=== PATIENT | male | born 1960 | race Caucasian/White ===

== ENCOUNTER → 2017-02-03 | Outpatient (CLI) | payer OTHER ==
[~2017-02-03] VITALS: Ht 175.3 cm; Wt 84.3 kg
[~2017-02-03] MED LIST: AMITRIPTYLINE H50 M2 PO; ASPIRIN EC81 M1 PO; BACLOFEN 10MG T10 MG PO; FISH OIL 1,2001 EAC5 PO; HYDROCHLOROTHIA25 M1 PO; HYDROCODON-ACE1 EAC5 PO; HYDROCODON-ACE1 EAC7; IBUPROFEN 200200 M1 PO; KETOCONAZOLE60 GM TP; LYRICA 75 MG CA75 MG PO; NEURONTIN600 MG PO; NIASPAN 500 MG500 M1 PO; NORCO 10-325 T1 EACH PO; NORVASC10 MG PO; PERCOCET 10-321 EACH PO; PRAVACHOL40 MG PO; VITAMIN D31000 UNI2 PO
--- NOTE | ~2017-02-03 | HPC ---
[facility] [place] [address] PAIN MANAGEMENT CONSULTATION Name: DANG AVILA Viktoria Room #: REG [facility]#: [id number] Admission: 02/03/17 Attend Phys: Simon Dee DO Discharge: Date of : 56 Report #: [id number] THIS REPORT FOR: //name// CC: Simon Murguia DATE OF SERVICE: 02/03/2017 REFERRING PHYSICIAN: Jose Hoffmann MD CHIEF COMPLAINT: Bilateral elbow pain. HISTORY OF PRESENT ILLNESS: As you know, the patient is a 56-year-old male who returns today in followup visit reporting bilateral elbow pain for which he places pain score 7/10, states his pain is exacerbated with golf activities for which he was just involved in a long weekend of golfing. This has caused right medial elbow pain and left lateral elbow pain. He returns today requesting injections into the elbows themselves to assist in his epicondylitis. The patient indicates pain is exacerbated with activities, improves with rest, relaxation and decreasing his golf activities. ALLERGIES: No known drug allergies. CURRENT MEDICATIONS: [place]-3 fish oil, hydrocodone, cholecalciferol, amlodipine, pravastatin, amitriptyline, aspirin, and hydrochlorothiazide. SOCIAL HISTORY: The patient denies tobacco, alcohol, IV or illicit drug use. He is retired. He is unaccompanied today. PHYSICAL EXAMINATION: VITAL SIGNS: Blood pressure 140/93, pulse 83, respiratory rate 16 and unlabored, the patient is 97% on room air, height 5 feet 9 inches tall, weight 185.8 pounds, and BMI calculated 27.4. GENERAL: Well-developed, well-nourished, well-hydrated 56-year-old male, appears his stated age, he is in no acute distress, awake, alert and oriented x3, pain is rated at 7/10. HEENT: Normocephalic, atraumatic. Pupils are equal, round, and reactive to light. EXTREMITIES: Show no clubbing, no cyanosis, and no edema. MUSCULOSKELETAL: The patient has palpatory tenderness to the medial aspect of the right elbow, this overlies the tendinous structures in the area. There is also tenderness to palpation over the lateral left elbow directly over the tendinous areas as well. There is no erythema and no edema in the area. Pain is elicited with active and passive range of motion as well as pronation and supination of both right and left upper extremity. [address] [address] PAIN MANAGEMENT CONSULTATION Name: DANG AVILA Viktoria Room #: REG [facility]#: [id number] Admission: 02/03/17 Attend Phys: Simon Dee DO Discharge: Date of : 56 Report #: [id number] ASSESSMENT: Bilateral elbow tendinitis. PLAN: 1. The patient has returned to our clinic to discuss bilateral elbow tendinitis, left lateral elbow and right medial elbow. The patient has undergone injections in the area with good efficacy. He recently had an injection done by orthopedic surgery on the medial portion of the right elbow, which resolved the symptoms for nearly a year. He has requested that we provide these injections today. He has been advised of the risks and the benefits of bilateral elbow injection. These risks include, but are not necessarily limited to bleeding, bruising, infection, worsening of pain, no relief of pain, also risk of temporary or permanent muscle weakness, temporary or permanent nerve damage, possible joint destruction and . The patient states understood and wished to proceed. 2. No medication changes were made at today's visit. The patient to continue current medical therapy as previously prescribed. We did give him samples of Pennsaid to utilize today. If he finds it is helpful, he can contact our clinic, he is to apply this up to 3 times a day to his elbows as necessary, he is not to utilize this medication for the next 48 hours as we have just recently provided this injection requested today. If he finds the Pennsaid helpful in pain control, he can contact our clinic and we will attempt to gain authorization. 3. The patient to return to our clinic on an as needed basis. PROCEDURE NOTE DESCRIPTION OF PROCEDURE: Right medial olecranon injection and left lateral olecranon injection to address medial and lateral epicondylitis. The patient was taken into our surgical suite. The area of the right medial elbow was prepped and draped with chlorhexidine. A 27-gauge 1-1/4-inch needle was used to anesthetize the skin and subcutaneous tissue with 1 mL of lidocaine 1%. A 27-gauge 1-1/4-inch needle was then used to advance towards the ligamentous structures of the medial portion of the elbow. After advancing the needle, aspiration noted to be negative for heme. 1 mL of a solution containing 1 mL 40 mg per mL, 40 mg total triamcinolone, 1 mL bupivacaine 0.5% was injected in a fanned-out distribution. Needle was retracted half way, flushed with a 0.5 mL of lidocaine 1% and removed. Sterile bandage was placed over this injection site. Our attention was then directed to the lateral aspect of the left elbow. The area was then prepped and draped in aseptic fashion with chlorhexidine. A 27-gauge 1-1/4-inch needle was used to anesthetize skin and subcutaneous tissue with 1 mL of 1% lidocaine. A 27-gauge 1-1/4 inch needle was then used to advance into the elbow ligamentous structures. Needle was advanced and [facility] [address] [place] [address] PAIN MANAGEMENT CONSULTATION Name: MARGARITADANG Room #: REG [facility] Shayla#: [id number] Admission: 02/03/17 Attend Phys: Simon Dee DO Discharge: Date of : 56 Report #: [id number] aspiration was then noted to be negative for heme. Next, 1 mL of a solution containing 1 mL 40 mg per mL, 40 mg total triamcinolone and 1 mL bupivacaine 0.5% was injected slowly in a fanned-out distribution. Needle was retracted long term, flushed with 1 mL of 1% lidocaine and removed. Sterile bandage placed over injection site. The patient tolerated the procedure well, carefully escorted to the recovery room in stable condition. VAS before procedure rated at 7/10, VAS after the procedure rated at no more than 2/10. After meeting our discharge criteria, the patient discharged home. By: [id number] Simon Dee DO /nt
[2017-02-03 10:22] VITALS: BP 140/93
== END ==
LOC: PAIN 07:02
DX: M77.12 Lateral epicondylitis, left elbow (principal); M77.01 Medial epicondylitis, right elbow; I10 Essential (primary) hypertension; Z87.891 Personal history of nicotine dependence

== ENCOUNTER → 2018-04-20 | Outpatient (CLI) | payer OTHER ==
[~2018-04-20] VITALS: Ht 172.7 cm; Wt 88.5 kg
[~2018-04-20] MED LIST changes: +LOSARTAN POTAS100 MG PO
--- NOTE | ~2018-04-20 | HPC ---
[facility] [place] [address] PAIN MANAGEMENT CONSULTATION Name: MARGARITADANG D [facility] [id number] Admission: 04/20/18 Attend Phys: Simon Dee DO Discharge: Date of : 56 Report #: [id number] THIS REPORT FOR: //name// CC: Simon Murguia DATE OF SERVICE: 04/20/2018 CHIEF COMPLAINT: Low back pain, right lower extremity pain with paresthesias. HISTORY OF PRESENT ILLNESS: As you know, the patient is a 58-year-old male, returning today in followup visit with numbness, tingling, burning sensation radiating from the low back down the right leg. He places pain score at approximately 8-9/10. He states pain is exacerbated with all activities, improves with nothing to date. The patient states he was in his normal state of health, undergoing physical therapy when his pain intensified. He was advised symptoms may be related to piriformis syndrome, but his symptoms do not remain in the buttock area. It radiates all the way down the leg in typical radiating fashion of a radiculopathy. He returns today in followup visit to discuss treatment options. He denies injury or trauma or changes in medical history since our last visit. ALLERGIES: No known drug allergies. CURRENT MEDICATIONS: [place]-3 fish oil, hydrocodone, cholecalciferol, amlodipine, pravastatin, amitriptyline, aspirin and hydrochlorothiazide. SOCIAL HISTORY: The patient denies tobacco, alcohol, IV or illicit drug use. He is retired, accompanied by his who is present in room today. PQRS: The patient has known osteoarthritis of the bilateral knees and bilateral elbows. He also has mild arthritic changes in the shoulders. He does not have a diagnosis of rheumatoid arthritis. He is not a fall risk, has not had a fall in the last 3 months. He is not on blood thinners. He is treated for hypertension. He has not been on opioids for longer than 6 weeks. He has a low assessment for opioid abuse. His functional assessment tool 38/70, moderate interference. PHYSICAL EXAMINATION: VITAL SIGNS: Blood pressure 130/103, pulse is 96, respiratory rate 14 and unlabored. The patient is 98% on room air. Height 5 feet 8 inches tall, weight 195 pounds, BMI calculated 29.7. GENERAL: Well-developed, well-nourished, well-hydrated 58-year-old male appearing stated age, placing current pain score at 8-9/10. HEENT: Normocephalic, atraumatic. Pupils equal, round, reactive to light. [facility] [address] [place] [address] PAIN MANAGEMENT CONSULTATION Name: DANG AVILA Room #: REG [facility]#: [id number] Admission: 04/20/18 Attend Phys: Simon Dee DO Discharge: Date of : 56 Report #: [id number] Extraocular muscles are intact. Sclerae nonicteric without injection. NEUROLOGIC: Cranial nerves 2-12 grossly intact. Speech fluent. The patient deemed a fair historian. EXTREMITIES: Show no clubbing, no cyanosis, no edema. MUSCULOSKELETAL: Seated straight leg raising negative. Supine straight leg raising positive on the right. JOSIAH test negative. Modified Gaenslen's positive for axial low back pain. Ankle clonus negative. Babinski is negative. ASSESSMENT: 1. Symptomatic lumbar radiculopathy. 2. Lumbosacral spondylosis with radiculopathy. 3. Post-laminectomy syndrome. 4. Chronic intractable pain. PLAN: 1. The patient returns today in followup visit with what appears to be a recurrence of his lumbar radicular symptoms radiating from the low back through the buttock area and down the leg. He is describing pain as burning, numbness and tingling consistent with a lumbar radiculopathy. I am unable to elicit any piriformis syndrome findings that would be concerning for this etiology. The hip joint appears to be normal and stable without pain generation with active and passive range of motion. Given the findings on physical exam, the descriptors the patient uses as well as the distribution of symptoms, I believe his symptoms are related to recurrent lumbar radiculopathy. At this point, we do not have any new imaging to confirm whether or not things have changed but it does appear his symptoms have returned. We have discussed options for treatment. He chose to undergo epidural injection. 2. The patient was advised risks and benefits of a lumbar epidural injection. These risks include but are not necessarily limited to bleeding, bruising, infection, worsening pain, no relief of pain, also risk of temporary or permanent muscle weakness, temporary or permanent nerve damage, possible paralysis and . The patient states he understood and wished to proceed. 3. No medication changes made at today's visit. The patient to continue current medical therapy as previously prescribed. 4. The patient will return to our clinic on an as-needed basis for next in the series of epidural injections. PROCEDURE NOTE DESCRIPTION OF PROCEDURE: L5-S1 right paramedian epidural steroid injection under fluoroscopic guidance. After obtaining written consent, the patient was taken back to fluoroscopy suite, placed in prone position with pillow under abdomen to decrease lumbar lordosis. Skin overlying lumbosacral area then prepped and draped in aseptic fashion. Lumbar intervertebral space was identified by AP fluoroscopy. Skin [facility] [address] [place] [address] PAIN MANAGEMENT CONSULTATION Name: DANG AVILA [id number] Admission: 04/20/18 Attend Phys: Simon Dee DO Discharge: Date of : 56 Report #: [id number] and subcutaneous tissue overlying target site of injection was anesthetized with 3 mL of 1% lidocaine. A 20-gauge 3-1/2 inch Tuohy needle advanced under fluoroscopic guidance towards the epidural space using right paramedian approach. Epidural space identified using loss of resistance to air technique. After negative aspiration for heme or cerebrospinal fluid, 1 mL of Omnipaque injected. Lumbar epidurogram confirmed using both AP and lateral fluoroscopy. After negative aspiration for heme or cerebrospinal fluid, 5 mL of solution containing 2 mL 40 mg per mL, 80 mg total triamcinolone, 3 mL lidocaine 1% injected slowly. Needle retracted care home, flushed with 1 mL of 1% lidocaine and removed. Sterile bandages were placed over injection site. The patient tolerated procedure well, carefully escorted to recovery room in stable condition. No apparent complications. After meeting discharge criteria, the patient discharged home. <ELECTRONICALLY SIGNED> By: Simon Dee DO 04/28/18 0801 [id number] Simon Dee DO /nt
[2018-04-20 12:58] VITALS: BP 130/103
== END | disposition home or self-care (01) ==
LOC: PAIN 06:40
DX: M47.27 Other spondylosis with radiculopathy, lumbosacral region (principal); G89.29 Other chronic pain; M96.1 Postlaminectomy syndrome, not elsewhere classified; I10 Essential (primary) hypertension; M06.9 Rheumatoid arthritis, unspecified; M19.90 Unspecified osteoarthritis, unspecified site; Z79.899 Other long term (current) drug therapy; Z79.891 Long term (current) use of opiate analgesic; Z79.82 Long term (current) use of aspirin; Z87.891 Personal history of nicotine dependence

== ENCOUNTER → 2018-05-05 | Outpatient (CLI) | payer OTHER ==
[~2018-05-05] VITALS: Ht 172.7 cm; Wt 87.6 kg
--- NOTE | ~2018-05-05 | HPC ---
[facility] [place] [address] PAIN MANAGEMENT CONSULTATION Name: MARGARITADANG Room #: REG [facility] [id number] Admission: 05/05/18 Attend Phys: Simon Dee DO Discharge: Date of : 56 Report #: [id number] THIS REPORT FOR: //name// CC: Simon Murguia DATE OF SERVICE: 05/05/2018 REFERRING PHYSICIAN: Jose Hoffmann M.D. CHIEF COMPLAINT: Low back pain, right lower extremity pain with paresthesias. HISTORY OF PRESENT ILLNESS: As you know, the patient is a 58-year-old male, returning in followup visit with continued numbness, tingling and pain radiating down the right leg. He is placing pain score 6-7/10. He indicates pain level is constant, nothing tends to improve it. He underwent epidural injection at our last visit to address suspected lumbar radiculopathy. Unfortunately, he received no improvement in symptoms. He returns to discuss other options for treatment. He has had no change in medical history since our last visit. He has made no changes in his medication management. ALLERGIES: No known drug allergies. CURRENT MEDICATIONS: [place]-3 fish oil, hydrocodone, cholecalciferol, amlodipine, pravastatin, amitriptyline, aspirin and hydrochlorothiazide. SOCIAL HISTORY: The patient denies tobacco, alcohol, IV or illicit drug use. He is retired. He is accompanied by his who is present in room today. IMAGING: No new imaging available. PQRS: The patient has osteoarthritis of the bilateral knees, bilateral elbows. He has mild arthritic changes in the shoulders. He does not have a diagnosis of rheumatoid arthritis. He is not a fall risk, has not had a fall in the last 3 months. He is not on blood thinners. He is treated for hypertension. He has been on opioids for greater than 6 weeks and under contract to receive these. He has a low opioid abuse potential. His functional assessment today indicates 48/70, severe interference. PHYSICAL EXAMINATION: VITAL SIGNS: Blood pressure 132/92, pulse is 81, respiratory rate 16, unlabored. The patient is 97% on room air. Height 5 feet 8 inches tall, weight 193.2 pounds, BMI calculated 29.4. GENERAL: Well-developed, well-nourished, well-hydrated 58-year-old male appearing his stated age, placing current pain score 6-7/10[place] [address] PAIN MANAGEMENT CONSULTATION Name: DANG AVILA Room #: REG [facility]#: [id number] Admission: 05/05/18 Attend Phys: Simon Dee DO Discharge: Date of : 56 Report #: [id number] HEENT: Normocephalic, atraumatic. Pupils equal, round, reactive to light. Extraocular muscles are intact. Sclerae are nonicteric without injection. EXTREMITIES: Show no clubbing, no cyanosis, no edema. MUSCULOSKELETAL: Lower extremity strength is symmetrical 5/5. Giveaway strength noted with hip flexion, knee extension on the right when compared to left due to pain generation. Seated straight leg raising mildly positive right. Supine straight leg raising positive right. Karina's test negative. Modified Gaenslen's positive for axial low back pain. Gait mildly antalgic, favoring right lower extremity. ASSESSMENT: 1. Symptomatic lumbar radiculopathy. 2. Lumbosacral spondylosis with radiculopathy. 3. Post-laminectomy syndrome. 4. Failed lumbar spine surgery. 5. Chronic intractable pain. PLAN: 1. The patient has returned today in followup visit unfortunately noticing not much in the way of improvement with the epidural injection provided at last visit. We have reviewed with the patient the procedure itself, also reviewed the imaging from the fluoroscope. It does appear the needle was in the appropriate position and the dye spread was significant enough to cover the suspected nerve root issues. Unfortunately with the lack of efficacy, I would not recommend continuing these epidural injections. We established today's appointment to discuss other treatment options. 2. The patient and I discussed the options for treatment now remain physical therapy, stretching exercises, core strengthening, medication management, adding a low dose opioid for pain control in conjunction with starting the patient on a long acting form of gabapentin, as he is unable to tolerate ____ gabapentin causing daytime somnolence and disorientation and confusion. We also discussed spinal cord stimulator therapy and surgical options. After reviewing risks and benefits of all proposed treatment options, the patient chose conservative medical management and physical therapy. 3. The patient will be sent for physical therapy twice a week, 4 weeks. Prescription was provided to the patient to begin as quickly as possible. He was also given information in written form today about stretching exercises he can do at home before formalized training begins. 4. The patient will be provided a prescription of hydrocodone, dosing is 10/325 one tab p.o. q. 6 hours p.r.n. for pain. I have given the patient #120, no refills. The patient was advised to watch for side effects of somnolence, decreased mental acuity, disorientation, confusion and constipation with use of therapy. He is to utilize the medication only when pain is intolerable, not to rely on the medication prophylactically. 4. The patient will begin taking Gralise, the 24-hour dose of gabapentin, as indicated above the patient had difficulty with both gabapentin and Lyrica [facility] [address] [place] [address] PAIN MANAGEMENT CONSULTATION Name: MARGARITADANG Room #: REG [facility].#: [id number] Admission: 05/05/18 Attend Phys: Simon Dee DO Discharge: Date of : 56 Report #: [id number] during the daytime hours causing somnolence, decreased mental acuity, disorientation and severe confusion. We had to discontinue the medication. We are unable to escalate the dose to an efficacious level. We will start the patient on Gralise at night 2 hours before bedtime. The pharmacokinetics and dynamics of this drug are such that the patient should not see long-term somnolence and decreased mental acuity based on the available literature and our experience with the drug. He will begin 2 hours before bedtime and continue the titration as directed. He will contact our clinic once he reaches an efficacious level or has issues or concerns with the medication. He was given samples to be able to titrate for 15 days, he will contact our clinic once he reaches a good level of pain improvement. 5. We will see the patient back in followup visit in 1 month for medication management and adjustments in therapy if necessary. By: [id number] Simon Dee DO /nt
[2018-05-05 09:53] VITALS: BP 132/92
== END ==
LOC: PAIN 05:56
DX: M47.27 Other spondylosis with radiculopathy, lumbosacral region (principal); G89.4 Chronic pain syndrome

== ENCOUNTER → 2018-06-02 | Outpatient (CLI) | payer OTHER ==
[~2018-06-02] VITALS: Ht 172.7 cm; Wt 86.7 kg
[~2018-06-02] MED LIST changes: +GRALISE300 MG PO
--- NOTE | ~2018-06-02 | HPC ---
[facility] [place] [address] PAIN MANAGEMENT CONSULTATION Name: DANG AVILA Room #: [facility] [id number] Admission: 06/02/18 Attend Phys: Simon Dee DO Discharge: Date of : 56 Report #: [id number] THIS REPORT FOR: //name// CC: MASSIMO Murguia DATE OF SERVICE: 06/02/2018 CHIEF COMPLAINT: Low back pain, right lower extremity pain and paresthesias. HISTORY OF PRESENT ILLNESS: As you know, the patient is a very pleasant 58-year-old male who returns today in followup visit having good resolution of symptoms with the combination of previous epidural injections and the use of Gralise. He is taking 300-600 mg depending on his pain level of the Gralise on a daily basis with good efficacy. He is now placing pain score 1/10. He returns today in followup visit requesting refills of his hydrocodone he uses on an as needed basis, but also a refill of his Gralise at 300 mg. He denies side effects to medication, feels they are working beneficially and has a pain level today of 1/10. ALLERGIES: No known drug allergies. CURRENT MEDICATIONS: [place]-3 fish oil, hydrocodone, cholecalciferol, amlodipine, pravastatin, amitriptyline, aspirin, hydrochlorothiazide, and Gralise. IMAGING: No new imaging available. PQRS: The patient has known osteoarthritis of the bilateral knees, bilateral elbows, mild arthritic changes in the shoulders. He has no diagnosis of rheumatoid arthritis. He is not a fall risk, has not had a fall in the last 3 months. He is not on blood thinners. He is treated for hypertension. He has been on opioids for greater than 6 weeks. He has a low opioid abuse potential. Functional assessment tool indicates pain impact of 4870. K-TRACS and MO-TRACS were completed, no concerning entries in these opioid tracking programs. PHYSICAL EXAMINATION: VITAL SIGNS: Blood pressure 132/90, pulse 84, respiratory rate 16 and unlabored. The patient is 97% on room air. Height 5 feet 8 inches tall, weight 191.2 pounds, BMI calculated 29.1. GENERAL: Well-developed, well-nourished, well-hydrated 58-year-old male appearing stated age, placing current pain score 1/10. HEENT: Normocephalic, atraumatic. Pupils equal, round, reactive to light. [facility] [address] [place] [address] PAIN MANAGEMENT CONSULTATION Name: DANG AVILA Viktoria Room #: REG [facility]#: [id number] Admission: 06/02/18 Attend Phys: Simon Dee DO Discharge: Date of : 56 Report #: [id number] EXTREMITIES: Show no clubbing, no cyanosis, no edema. MUSCULOSKELETAL: Seated straight leg raising negative. Supine straight leg raising remains positive on the right. Karina's test negative. Modified Gaenslen's positive for axial back pain. Ankle clonus negative. Babinski is negative. ASSESSMENT: 1. Symptomatic lumbar radiculopathy. 2. Lumbosacral spondylosis with radiculopathy. 3. Mild displacement of lumbar intervertebral disk with radiculopathy. 4. Post-laminectomy syndrome. 5. Failed lumbar spine surgery. 6. Chronic intractable pain. PLAN: 1. The patient returns today in followup visit indicating good efficacy with combination of epidural injections, hydrocodone and the recent addition of Gralise. He is taking 300 mg at night and notes pain score 1/10. He wishes to continue medication as currently prescribed. He feels the gabapentin is working well in the Gralise formulation which equates to 300 mg 3 times a day. The patient was provided prescription of Gralise 300 mg dose 1 tab p.o. at bedtime. I have given the patient #30 tablets, 2 refills, 3 months' worth of medication. 2. The patient was given sample pack of Gralise today. He will continue the 300 mg tablets for the next couple of weeks, confirm that his symptoms remain improved at the 300 mg dose. If not, we could escalate to the 600 mg dose. I have advised the patient not to fill the prescription above until he has completed the sample 300 mg tablets. If he continues at 300 mg without complication, we will be more than willing to provide him refills at followup visits. We reviewed the fact that opiate medications are being used to provide analgesia adequate to support activities of daily living, not attempting to achieve a specific pain score on the 0-10 Visual Analog Scale. The current opiate medications are providing sufficient analgesia to allow the patient to participate in activities of daily living. The patient is not exhibiting any aberrant behavior suggestive of drug diversion. The patient is not having any adverse reactions to medications. The patient is not suffering from daytime somnolence or mental acuity changes. The patient is managing opiate-induced constipation with appropriate kqfj-pik-kookvfs agents and dietary considerations. The patient was counseled on concern for caution with operating a motor vehicle while using opiate medications. A physical exam was performed and the patient's functional status was evaluated. All patients with back pain were advised against the bed rest greater than 4 days and were advised to return to normal activities. Pain score assessment was noted and the treatment plan was reviewed with the patient. All current [facility] [place] [address] PAIN MANAGEMENT CONSULTATION Name: DANG AVILA Room #: [facility] [id number] Admission: 06/02/18 Attend Phys: Simon Dee DO Discharge: Date of : 56 Report #: [id number] medications, both prescribed and OTC were reviewed and reconciled on the electronic medical record. Tobacco screening was accomplished and smoking cessation was advised when indicated. BMI was noted and diet/exercise modification was recommended for all patients following outside normal parameters. I reviewed with the patient today their responsibilities to safeguard prescription medications, reviewed their responsibility to utilize medications only as prescribed by the physician. They are to seek and receive pain medications only from 1 physician group ( [facility]). They are to use 1 pharmacy and keep the clinic informed if they change pharmacies. Their responsibilities include making followup visits in a timely fashion and to avoid abrupt discontinuation of medication usage. Their responsibilities further include bringing their medications (bottles from the pharmacy with residual pills) to the visit for possible confirmation of pill counts and the patient understands it is their responsibility to submit to random drug screens to ensure both that the medications prescribed are present, and that no other controlled substances are present. All prescriptions provided today were generated electronically. 3. The patient was provided prescription of hydrocodone 10/325 one tab every 8 hours p.r.n. for pain, I have given the patient #90, releases of today and 4 weeks from today, 2 months' worth of medication. The patient was advised to take the medication as directed, not to take the medication prophylactically. 4. We will see the patient back in followup visit on an as needed basis for possible repeat epidural injection. Otherwise, we will see him back in 2 months for opioid medications. By: [id number] Simon Dee DO /nt
[2018-06-02 08:54] VITALS: BP 132/90
== END ==
LOC: PAIN 06:55
DX: M47.27 Other spondylosis with radiculopathy, lumbosacral region (principal); M51.16 Intervertebral disc disorders with radiculopathy, lumbar region; G89.4 Chronic pain syndrome; Z79.899 Other long term (current) drug therapy

== ENCOUNTER → 2018-11-24 | Outpatient (CLI) | payer OTHER ==
[~2018-11-24] VITALS: Ht 172.7 cm; Wt 88.6 kg
[~2018-11-24] MED LIST changes: +GRALISE600 MG PO
[2018-11-24 09:12] VITALS: BP 116/83
--- NOTE | 2018-11-24 09:23 | NUR ---
Pain Clinic Assessment: 1. History of Osteoarthritis: Not Applicable History of Rheumatoid Arthritis: Not Applicable 2. Height: 5 ft. 8 in. 172.7 cm. Weight: 195.4 lb. oz. 88.633 kg. Patient's BMI: 29.7 3. Vital Signs: BP: 116/83 Pulse: 89 Resp: 16 Temp: 02 Sat: 100 ECG Mon: 4. Pain Intensity: 9 5. Fall Risk: Dizziness: N Needs help standing or walking: N Fallen in the last 3 months: N Fall risk comments: 6. Patient on Blood Thinner: None 7. History of Hypertension: Y 8. Opioid Therapy greater than 6 weeks: N Opiate Contract Signed: 9. Risk Assessment Tool Provided: LOW 10. Functional Assessment Tool: 48/ 11. Recreational Drug Use: Past greater than 3 mos Drug Type: Tobacco Use: Former Smoker Tobacco Type: Amount or Packs/day: How Many Years: Alcohol Use: Yes Frequency: Monthly Quant:
--- NOTE | 2018-12-01 07:55 | HPC ---
[facility] [place] [address] PAIN MANAGEMENT CONSULTATION Name: MARGARITADANG Room #: [facility] [id number] Admission: 11/24/18 Attend Phys: Simon Dee DO Discharge: Date of : 56 Report #: [id number] THIS REPORT FOR: //name// CC: Simon Murguia MD DATE OF SERVICE: 11/30/2018 CHIEF COMPLAINT: Low back pain, right lower extremity pain with paresthesias. HISTORY OF PRESENT ILLNESS: As you know, the patient is a very pleasant 58-year-old male who returns today in followup visit with 9/10 pain. The patient states he has run out of his Gralise lately due to the cost of medication. He returns requesting refill on the medication as he has found good benefit with its use. We have trialed the patient on immediate release gabapentin in the past and this provided no improvement in symptoms, but did cause significant side effects of somnolence, decreased mental acuity, disorientation, confusion and mental slowing. The patient noted good efficacy with the Gralise and no specific side effects to the medication. He was doing very well with the medication, but indicates he ran out recently. His pain now has intensified up to 9/10. He denies new injury or trauma that may have led to symptom reoccurrence. He returns today in followup visit requesting refill on medications and discuss options for treatment. ALLERGIES: No known drug allergies. CURRENT MEDICATIONS: [place]-3 fish oil, hydrocodone, cholecalciferol, amlodipine, pravastatin, amitriptyline, aspirin, hydrochlorothiazide. IMAGING: No new imaging available. PQRS: The patient has known osteoarthritic changes of the lumbar spine, bilateral shoulders, bilateral elbows, and bilateral knees. He has no diagnosis of rheumatoid arthritis. He is not a fall risk, has not had a fall in the last 3 months. He is not on blood thinners. He is treated for hypertension. He is not on chronic opioids. He has a low opioid addiction potential. He is placing pain impact score of 48/70 indicating bioqrlho-hr-fdnhvq interference of daily activities secondary to pain. PHYSICAL EXAMINATION: VITAL SIGNS: Blood pressure 116/83, pulse 89, respiratory rate 16 and unlabored. The patient is 100% on room air. Height 5 feet 8 inches tall, weight 195.4 pounds, BMI calculated 29.7. GENERAL: Well-developed, well-nourished, well-hydrated 58[place] [address] PAIN MANAGEMENT CONSULTATION Name: DANG AVILA Room #: REG [facility]#: [id number] Admission: 11/24/18 Attend Phys: Simon Dee DO Discharge: Date of : 56 Report #: [id number] appearing stated age. He is placing pain score today 9/10. HEENT: Normocephalic, atraumatic. Pupils equal, round, reactive to light. EXTREMITIES: Show no clubbing, no cyanosis, no edema. MUSCULOSKELETAL: Lower extremity strength appears symmetrical 5/5. He is intact to light touch from L1 through S2 dermatomes. Seated straight leg raising negative. Supine straight leg raising is positive right. JOSIAH test negative. Modified Gaenslen's positive for axial low back pain. Ankle clonus negative. Babinski is negative. Gait is antalgic favoring right lower extremity over left. Stance is slightly forward flexed in lumbar spine. ASSESSMENT: 1. Symptomatic lumbar radiculopathy. 2. Lumbosacral spondylosis with radiculopathy. 3. Mildly displaced lumbar intervertebral disk with radiculopathy. 4. Post-laminectomy syndrome. 5. Failed lumbar spine surgery. 6. Chronic intractable pain. PLAN: 1. The patient returns today in followup visit indicating good efficacy with the Gralise therapy. Unfortunately, he did not see benefit with the immediate release gabapentin formulation. We have attempted escalating dose of gabapentin to reach similar effects he has noted with the long-acting release formulation. Unfortunately, the side effects of somnolence, decreased mental acuity, disorientation and confusion precluded us from moving to a dose that would provide good benefit. The patient indicates with Gralise his pain usually drops from a 9/10-1/10. He is doing very well with the Gralise medication. No side effects to the therapy. Unfortunately, his third libertarian payer (insurer) has been unable or unwilling to cover this medication despite the fact that he is showing good benefit and good efficacy with no side effects. The patient has requested a refill of his Gralise. He is going to contact his insurer to determine if coverage can be obtained. 2. The patient was provided prescription of Gralise 600 mg tablets 2 tabs p.o. at bedtime for a total of 1200 mg dose. He was given this prescription with 5 refills, 6 months' worth of medication. I have advised the patient to contact his third libertarian payer to discuss coverage of the medication given the fact that he has noted excellent benefit with the Gralise and no significant side effects and he has trialled and failed immediate release gabapentin 2 different times at our clinic alone. I would recommend that we utilize Gralise for baseline pain control. It worked well for this patient and he is having no significant side effects. He can contact his third libertarian payer to discuss possibility of having his case reviewed and appeal made for coverage of the medication. 3. We did offer the patient injection therapy in the form of lumbar epidural injection. We also discussed spinal cord stimulator with the patient. He will consider these options, but is hopeful that he will get good return and benefit from the Gralise. [facility] [address] [place] [address] PAIN MANAGEMENT CONSULTATION Name: DANG AVILA Viktoria Room #: [facility]#: [id number] Admission: 11/24/18 Attend Phys: Simon Dee DO Discharge: Date of : 56 Report #: [id number] 4. We will see the patient back in followup visit on an as needed basis. He has 6 months' worth of medication. <ELECTRONICALLY SIGNED> By: Simon Dee DO 12/01/18 [id number] Simon Dee DO /nt
== END ==
LOC: PAIN 07:04
DX: M47.27 Other spondylosis with radiculopathy, lumbosacral region (principal); M51.16 Intervertebral disc disorders with radiculopathy, lumbar region; G89.4 Chronic pain syndrome; M96.1 Postlaminectomy syndrome, not elsewhere classified; Z79.899 Other long term (current) drug therapy

== ENCOUNTER → 2021-11-05 | Outpatient (CLI) | payer OTHER ==
[~2021-11-05] VITALS: Ht 172.7 cm; Wt 86.2 kg
[~2021-11-05] MED LIST changes: +CO Q10100 MG PO; +NORCO7.5 PO
[2021-11-05 09:04] VITALS: BP 138/86
--- NOTE | 2021-11-05 09:29 | NUR ---
Pain Clinic Assessment: 1. History of Osteoarthritis: Not Applicable History of Rheumatoid Arthritis: SHOULDER BACK NECK 2. Height: 5 ft. 8 in. 172.7 cm. Weight: 190.0 lb. oz. 86.184 kg. Patient's BMI: 28.9 3. Vital Signs: BP: 138/86 Pulse: 95 Resp: 14 Temp: 02 Sat: 97 ECG Mon: 4. Pain Intensity: 7 5. Fall Risk: Dizziness: N Needs help standing or walking: N Fallen in the last 3 months: N Fall risk comments: 6. Patient on Blood Thinner: None 7. History of Hypertension: Y 8. Opioid Therapy greater than 6 weeks: N Opiate Contract Signed: 9. Risk Assessment Tool Provided: LOW RISK 0-3 10. Functional Assessment Tool: 11. Recreational Drug Use: Never Drug Type: Tobacco Use: Never Smoker Tobacco Type: Amount or Packs/day: How Many Years: Alcohol Use: Yes Frequency: Weekly Quant: 1- BEEERS
--- NOTE | 2021-11-06 09:57 | HPC ---
[facility] [place] [address] PAIN MANAGEMENT CONSULTATION Name: MARGARITADANG Room #: REG [facility]errill#: [id number] Admission: 11/05/21 Attend Phys: Simon Dee DO Discharge: Date of : 56 Report #: [id number] THIS REPORT FOR: cc: Hai Murguia MD, Steven D. MD Johnson, James E. DO ~ cc: Jose Hoffmann MD DATE OF SERVICE: 11/05/2021 REFERRING PHYSICIAN: Jose Hoffmann MD CHIEF COMPLAINT: Low back pain, right lower extremity pain with paresthesias. HISTORY OF PRESENT ILLNESS: As you know, the patient is a very pleasant 61-year-old male returning today in followup visit with pain level of 7/10. He has been advised to return to our clinic to discuss options for treatment for recurrent lumbar radiculopathy. He continues to experience low back pain, right lower extremity symptoms, which has been present since our initial visit where he was seen in consultation on 06/21/2013. The patient has undergone epidural injections periodically throughout the years with benefit as well as taking oral medications. He returns today in followup visit stating that he has been able to return to the majority of his activities of daily living without significant pain interference. He uses a periodic [place] 7.5/325 for pain control. The most recent prescription was nearly 2 years ago. He returns today in followup visit requesting to discuss treatment options for recurrent low back pain, right lower extremity pain with paresthesias. There has been no injury or trauma. He has had no changes in medication management since his last visit. ALLERGIES: No known drug allergies. CURRENT MEDICATIONS: [place]quin 7.5/325 one tab every 8 hours p.r.n. for pain, coenzyme Q10 100 mg once a day, amlodipine 10 mg per day, losartan 100 mg once a day, omega-3 fish oil 1 tab per day, cholecalciferol 1000 units per day, hydrochlorothiazide 25 mg per day, aspirin 81 mg per day, amitriptyline 50 mg once a day, pravastatin 40 mg per day. SOCIAL HISTORY: The patient denies tobacco, alcohol or IV or illicit drug use. He is unaccompanied at today's visit. IMAGING: No new imaging available. PQRS: The patient has known arthritic changes of lumbar spine, bilateral shoulders, bilateral elbows and knees. No rheumatoid arthritis. He is not a fall risk, has not had a fall in last 3 months. He is placing current pain at around 8/10. He is not on blood thinners, but is treated for hypertension. He is on chronic opioids, has a low opioid addiction potential based on our [facility] [address] [place] [address] PAIN MANAGEMENT CONSULTATION Name: DANG AVILA Room #: REG [facility] Shayla#: [id number] Admission: 11/05/21 Attend Phys: Simon Dee DO Discharge: Date of : 56 Report #: [id number] assessment tool. Pain impact is 30/70, mild interference of daily activities secondary to pain. PHYSICAL EXAMINATION: VITAL SIGNS: Blood pressure 138/86, pulse is 95, respiratory rate 14 and unlabored. The patient is 97% on room air. Height 5 feet 8 inches tall, weight 190 pounds, BMI calculated 28.9. GENERAL: Well-developed, well-nourished, well-hydrated 61-year-old male appearing stated age, pain is rated a 7/10. HEENT: Normocephalic, atraumatic. Pupils are round. He is wearing a mask in compliance with COVID-19 regulations in hospital policies. EXTREMITIES: Showed no clubbing, no cyanosis. No appreciable edema. MUSCULOSKELETAL: Seated straight leg raising is negative. Supine straight leg raising is positive on the right, approximately 70-degree angle. Ankle clonus negative. Babinski is negative. Modified Gaenslen's is positive for axial low back pain. Muscle bulk and tone equal and symmetrical lower extremity. Strength is 5/5. Deep tendon reflexes are 2+/4 bilaterally at the patella and Achilles. ASSESSMENT: 1. Symptomatic lumbar radiculopathy. 2. Lumbosacral spondylosis with radiculopathy. 3. Displacement of lumbar intervertebral disk with radiculopathy. 4. Post-laminectomy syndrome. 5. Failed lumbar spine surgery. 6. Chronic intractable pain. PLAN: 1. The patient returns today in followup visit per the request of the neurosurgery team to discuss continued treatment for his lumbar radicular symptoms. We spent time today discussing the treatments we have available to address his symptoms. These treatments include physical therapy, stretching exercises and core strengthening as a treatment approach. We discussed medication management with suggestions of treatment to include amitriptyline, nortriptyline, Cymbalta, Lyrica or gabapentin for neuropathic pain control and the possible use of a low dose opioid for pain uncontrolled by the neuropathics. We discussed lumbar epidural injections under fluoroscopic guidance for which the patient was referred to our clinic. We also discussed spinal cord stimulator therapy and ultimately surgical decompression. After reviewing risks and benefits of all proposed treatment options, the patient chose to remain with conservative medication management. 2. The patient was provided a refill prescription of Chiloquin 7.5/325 one tab every 8 hours p.r.n. for pain, given the patient #90 tablets. The last prescription that we provided to this patient was filled in 2018. He has been taking those medications judiciously and has just run low of the medication recently. We have replenished his supply with the Chiloquin 7.5/325 prescription today, which was sent via e-scribe to local pharmacy. This should last the [facility] [address] [place] [address] PAIN MANAGEMENT CONSULTATION Name: MARGARITADANG D Room #: REG [facility] Shayla#: [id number] Admission: 11/05/21 Attend Phys: Simon Dee DO Discharge: Date of : 56 Report #: [id number] patient for an extended period of time. 3. We reviewed the fact that opiate medications are being used to provide analgesia adequate to support activities of daily living, not attempting to achieve a specific pain score on the 0-10 Visual Analog Scale. The current opiate medications are providing sufficient analgesia to allow the patient to participate in activities of daily living. The patient is not exhibiting any aberrant behavior suggestive of drug diversion. The patient is not having any adverse reactions to medications. The patient is not suffering from daytime somnolence or mental acuity changes. The patient is managing opiate-induced constipation with appropriate cnal-kdr-uqhbpqa agents and dietary considerations. The patient was counseled on concern for caution with operating a motor vehicle while using opiate medications. A physical exam was performed and the patient's functional status was evaluated. All patients with back pain were advised against the bed rest greater than 4 days and were advised to return to normal activities. Pain score assessment was noted and the treatment plan was reviewed with the patient. All current medications, both prescribed and OTC were reviewed and reconciled on the electronic medical record. Tobacco screening was accomplished and smoking cessation was advised when indicated. BMI was noted and diet/exercise modification was recommended for all patients following outside normal parameters. I reviewed with the patient today their responsibilities to safeguard prescription medications, reviewed their responsibility to utilize medications only as prescribed by the physician. They are to seek and receive pain medications only from 1 physician group ( [facility]). They are to use 1 pharmacy and keep the clinic informed if they change pharmacies. Their responsibilities include making followup visits in a timely fashion and to avoid abrupt discontinuation of medication usage. Their responsibilities further include bringing their medications (bottles from the pharmacy with residual pills) to the visit for possible confirmation of pill counts and the patient understands it is their responsibility to submit to random drug screens to ensure both that the medications prescribed are present, and that no other controlled substances are present. All prescriptions provided today were generated electronically. 4. The patient and I did discuss the possibility of undergoing a lumbar epidural injection if his symptoms do not improve. We also discussed spinal cord stimulator therapy and he will consider this as an option. 5. We will see the patient back in followup visit on an as needed basis. I am hopeful the patient will continue to see good benefit with the treatments provided through our services, and we will see him back as necessary. <ELECTRONICALLY SIGNED> By: Simon Dee DO 11/06/21 [id number] Simon Dee DO /nt
== END ==
LOC: PAIN 08:22
PROVIDERS: ATTEND Anesthesiology Pain Medicine
DX: M47.27 Other spondylosis with radiculopathy, lumbosacral region (principal); M47.26 Other spondylosis with radiculopathy, lumbar region; M96.1 Postlaminectomy syndrome, not elsewhere classified; G89.29 Other chronic pain; M79.661 Pain in right lower leg; Z79.82 Long term (current) use of aspirin; Z79.899 Other long term (current) drug therapy